=== PATIENT | male | born 1990 | race African-American/Black ===

== ENCOUNTER 2019-07-22 20:42 | Emergency (ER) | payer MEDICAID ==
[~2019-07-22] VITALS: Ht 180.3 cm; Wt 91.0 kg
[2019-07-22] MEDS ORDERED: ACETAMINOPHEN 325MG TABLET PO ONE (21:45)
[2019-07-22 22:15] VITALS: BP 135/80
== END 2019-07-23 00:12 | disposition home or self-care (01) ==
LOC: ER 20:49
DX: R51 Headache (principal); J45.909 Unspecified asthma, uncomplicated; F32.9 Major depressive disorder, single episode, unspecified
CPT/HCPCS: 99283